=== PATIENT | male | born 1950 | race Caucasian/White ===

== ENCOUNTER 2016-05-01 14:43 | Inpatient (IN) | payer MEDICARE, OTHER ==
[~2016-05-01] VITALS: Ht 182.9 cm; Wt 84.0 kg
[~2016-05-01 14:43] MED LIST: ASPI81 PO; ATOR80TA41 PO; CARV3.125 PO; CLOP75 PO; OMEP20TA39 PO
[2016-05-01 14:45] VITALS: BP 151/78; PULSE 67; RESP 12; TEMP 97.6; O2SAT 94
--- NOTE | 2016-05-01 14:58 | PD ---
HPI Chief Complaint: Chest Pain Time Seen by Provider: 14:58 Travel History International Travel<30 days: No Contact w/Intl Traveler<30days: No Traveled to known affect area: No History of Present Illness HPI 65-year-old male came to the emergency room with history of chest pain that has been going on for past few days but worse since last night. Patient describes it dull pressure kind of sensation substernal and all across his chest. Patient had a stent put in 2 months ago and says that since then the pain has never really gone away. He has been lightheaded. No history of nausea vomiting. Patient was slightly bradycardic in the ER. He is on Plavix and aspirin since his stent and has been taking it every day like he supposed to. PFSH Past Medical History Narrative Medical List of his past medical history as reviewed from the nursing note. Hx Anticoagulant Therapy: Yes (PLAVIX) Arthritis: Yes (BILATERAL KNEE) Anxiety: Yes Depression: Yes Cancer: No Cardiovascular Problems: Yes (STENT) High Cholesterol: Yes Diminished Hearing: Yes Endocrine: No Gastrointestinal Disorders: Yes Genitourinary: No Hiatal Hernia: Yes Hypertension: Yes Immune Disorder: No Musculoskeletal: Yes Neurologic: Yes ( [place]ANGE) Psychiatric: Yes Reproductive: No Respiratory: Yes (COPD) Immunizations Current: Yes Past Surgical History Abdominal Surgery: Yes Cardiac Surgery: No Coronary Stent: Yes (x1) Ear Surgery: No Endocrine Surgery: No Eye Surgery: Yes Genitourinary Surgery: No Gynecologic Surgery: No Oral Surgery: No Thoracic Surgery: No Other Surgery: Yes Social History Alcohol Use: No Tobacco Use: No Substance Use: No Allergies-Medications (Allergen,Severity, Reaction): Coded Allergies: Amoxicillin (Verified Allergy, Severe, Anaphylaxis, 05/01/16) Codeine (Verified Allergy, Severe, Anaphylaxis, 05/01/16) HMG-CoA Reductase Inhibitors (Verified Allergy, Unknown, 05/01/16) MUSCLE PAINS, DIZZINESS Comments List of his allergies reviewed from the nursing note. Reported Meds & Prescriptions Reported Meds & Active Scripts Active Reported Protonix (Pantoprazole Sodium) 20 Mg Tab 20 Mg PO DAILY Plavix (Clopidogrel Bisulfate) 75 Mg Tab 75 Mg PO DAILY Aspirin Low Dose (Aspirin) 81 Mg Chew 81 Mg CHEW DAILY Narrative Medication List of his home medications reviewed from the nursing note. Review of Systems Except as stated in HPI: all other systems reviewed are Neg Physical Exam Narrative GENERAL: Awake, alert, moderate distress SKIN: Warm and dry. HEAD: Atraumatic. Normocephalic. EYES: Pupils equal and round. No scleral icterus. No injection or drainage. ENT: No nasal bleeding or discharge. Mucous membranes pink and moist. NECK: Trachea midline. No JVD. CARDIOVASCULAR: Regular rate and rhythm. No murmur appreciated. RESPIRATORY: No accessory muscle use. Clear to auscultation. Breath sounds equal bilaterally. GASTROINTESTINAL: Abdomen soft, non-tender, nondistended. Hepatic and splenic margins not palpable. MUSCULOSKELETAL: No obvious deformities. No clubbing. No cyanosis. No edema. NEUROLOGICAL: Awake and alert. No obvious cranial nerve deficits. Motor grossly within normal limits. Normal speech. PSYCHIATRIC: Appropriate mood and affect; insight and judgment normal. Data Data Last Documented VS Vital Signs Date Time Temp Pulse Resp B/P Pulse Ox O2 Delivery O2 Flow Rate FiO2 05/01/16 16:00 58 19 120/80 96 Room Air 05/01/16 14:45 97.6 Orders Electrocardiogram (05/01/16 15:06) Basic Metabolic Panel (Bmp) (05/01/16 15:06) Ckmb (Isoenzyme) Profile (05/01/16 15:06) Complete Blood Count With Diff (05/01/16 15:06) Magnesium (Mg) (05/01/16 15:06) Prothrombin Time / Inr (Pt) (05/01/16 15:06) Act Partial Throm Time (Ptt) (05/01/16 15:06) Troponin I (05/01/16 15:06) Chest, Single Ap (05/01/16 15:06) Ecg Monitoring (05/01/16 15:06) Bilateral Bp Monitoring (05/01/16 15:06) Iv Access Insert/Monitor (05/01/16 15:06) Oximetry (05/01/16 15:06) Oxygen Administration (05/01/16 15:06) Sodium Chloride 0.9% Flush (Ns Flush) (05/01/16 15:15) Aspirin Chew (Aspirin Chew) (05/01/16 15:15) D-Dimer (05/01/16 15:11) CKMB (05/01/16 15:10) CKMB% (05/01/16 15:10) Heparin Infusion IRASEMA.Q1H (05/01/16 17:11) Heparin Inj (Heparin Inj) (05/01/16 17:15) Heparin-D5w Inj (Heparin-D5w Inj) (05/01/16 17:15) Act Partial Throm Time (Ptt) (05/01/16 17:11) Cbc No Diff, Includes Plts (05/01/16 17:11) Admit Order (Ed Use Only) (05/01/16 17:36) Labs Laboratory Tests Test 05/01/16 15:10 White Blood Count 8.3 TH/MM3 Red Blood Count 4.71 MIL/MM3 Hemoglobin 14.2 GM/DL Hematocrit 42.7 % Mean Corpuscular Volume 90.7 FL Mean Corpuscular Hemoglobin 30.3 PG Mean Corpuscular Hemoglobin 33.3 % Concent Red Cell Distribution Width 13.6 % Platelet Count 221 TH/MM3 Mean Platelet Volume 8.7 FL Neutrophils (%) (Auto) 62.9 % Lymphocytes (%) (Auto) 24.1 % Monocytes (%) (Auto) 7.1 % Eosinophils (%) (Auto) 5.0 % Basophils (%) (Auto) 0.9 % Neutrophils # (Auto) 5.3 TH/MM3 Lymphocytes # (Auto) 2.0 TH/MM3 Monocytes # (Auto) 0.6 TH/MM3 Eosinophils # (Auto) 0.4 TH/MM3 Basophils # (Auto) 0.1 TH/MM3 CBC Comment DIFF FINAL Differential Comment Prothrombin Time 10.5 SEC Prothromb Time International 1.0 RATIO Ratio Activated Partial 25.2 SEC Thromboplast Time D-Dimer Quantitative (PE/DVT) 0.26 MG/L FEU Sodium Level 138 MEQ/L Potassium Level 3.9 MEQ/L Chloride Level 104 MEQ/L Carbon Dioxide Level 28.7 MEQ/L Anion Gap 5 MEQ/L Blood Urea Nitrogen 16 MG/DL Creatinine 1.05 MG/DL Estimat Glomerular Filtration 70 ML/MIN Rate Random Glucose 101 MG/DL Calcium Level 9.2 MG/DL Magnesium Level 2.3 MG/DL Total Creatine Kinase 148 U/L Creatine Kinase MB 2.1 NG/ML Troponin I 0.13 NG/ML MDM Medical Decision Making Medical Screen Exam Complete: Yes Emergency Medical Condition: Yes Medical Record Reviewed: Yes Interpretation(s) Twelve-lead EKG was reviewed by me. Normal sinus rhythm, left axis deviation, bradycardia, nonspecific ST-T wave changes. Heart rate of 57 bpm. Differential Diagnosis ACS, non-STEMI, nonspecific chest pain Narrative Course 5:30 PM blood test results of back and patient has elevated troponin. I have ordered IV heparin bolus and drip for this patient. He will be admitted to CICU. Critical Care Narrative Aggregate critical care time was 30 minutes. Time to perform other separately billable procedures was not included in the critical care time. My time did not include minutes spent treating any other patients simultaneously or on activities that did not directly contribute to the patient's treatment. The services I provided to this patient were to treat and/or prevent clinically significant deterioration that could result in: Non-STEMI, heparin bolus and drip I provided critical care services requiring my management, as noted below: Chart data review, documentation time, medication orders and management, vital sign assessments/reviewing monitor data, ordering and reviewing lab tests, ordering and interpreting/reviewing x-rays and diagnostic studies, care of the patient and discussion of the patient with the admitting physicians. Procedures EKG Prior to Arrival: Yes Diagnosis Primary Impression: Non-STEMI (non-ST elevated myocardial infarction) Additional Impression: Chest pain Qualified Code: R07.9 - Chest pain, unspecified type Admitting Information Admitting Physician Requests: Admit Scripts Isosorbide Mononitrate ER 30 Mg Taber30 Mg PO DAILY #30 TAB Prov:Argelia Coon MD 05/02/16 Nitroglycerin SL (Nitrostat SL)0.4 Mg Subl0.4 Mg SL Q5M PRN (CHEST PAIN) #30 CAP Prov:Argelia Coon MD 05/02/16 Arianne Alan MD May 01, 2016 14:58
[2016-05-01] MEDS ORDERED: ASPI81CH37 CHEW (14:59)
[2016-05-01] MEDS ORDERED: PLAV75TA29 PO (14:59)
[2016-05-01] MEDS ORDERED: PANT20 PO (14:59)
[2016-05-01] MEDS ORDERED: SODIUM CHLORIDE 0.9% FLUSH 5 ML FLUSH IVF PRN (15:15)
[2016-05-01] MEDS ORDERED: ASPIRIN 81 MG CHEW TAB CHEW ONE (15:15)
[2016-05-01 15:21] VITALS: BP_SYST 129; BP_SYST 135; BP_DIAS 90; BP_DIAS 92; O2SAT 99
[2016-05-01 15:48] LABS: AUTOMATED NEUTROPHIL # 5.3 TH/MM3 (1.8-7.7); BASOPHIL # 0.1 TH/MM3 (0-0.2); BASOPHIL % 0.9 % (0.0-2.0); EOSINOPHIL # 0.4 TH/MM3 (0-0.4); HEMATOCRIT 42.7 % (39.0-51.0); HEMO FLAGS DIFF FINAL; LYMPH % 24.1 % (9.0-44.0); MEAN CELL VOLUME 90.7 FL (80.0-100.0); MEAN CORPUSCULAR HEMOGLOBIN 30.3 PG (27.0-34.0); MEAN CORPUSCULAR HGB CONC 33.3 % (32.0-36.0); MONO % 7.1 % (0.0-8.0); NEUT % 62.9 % (16.0-70.0); PLATELET COUNT 221 TH/MM3 (150-450); RED BLOOD COUNT 4.71 MIL/MM3 (4.50-5.90); RED CELL DISTRIBUTION WIDTH 13.6 % (11.6-17.2); WHITE BLOOD COUNT 8.3 TH/MM3 (4.0-11.0)
--- NOTE | 2016-05-01 15:54 | RADRPT ---
EXAM DATE/TIME: 05/01/2016 15:07 [facility] COMPARISON: CHEST SINGLE AP, February 05, 2016, 20:26. INDICATIONS : Mid Sternal Chest pains x 1 day. MEDICAL HISTORY : Cardiovascular disease. TIA SURGICAL HISTORY : Stent ENCOUNTER: Initial ACUITY: 1 day PAIN SCORE: 3/10 LOCATION: Bilateral chest FINDINGS: Portable AP view of the chest demonstrates a normal-sized cardiac silhouette. No effusion, consolidat ion, or pneumothorax is identified. The bones and soft tissues demonstrate no acute finding. CONCLUSION: No acute cardiopulmonary abnormality is identified. Mike Cortez MD on May 01, 2016 at 15:51 Board Certified Radiologist. This report was verified electronically.
[2016-05-01 15:58] LABS: APTT (PATIENT) 25.2 SEC (24.3-30.1); PROTHROMBIN TIME - PATIENT 10.5 SEC (9.8-11.6)
[2016-05-01 16:00] VITALS: BP 120/80; PULSE 58; RESP 19; O2SAT 96
[2016-05-01 16:20] LABS: ANION GAP 5 MEQ/L (5-15); BICARBONATE 28.7 MEQ/L (21.0-32.0); BLOOD UREA NITROGEN 16 MG/DL (7-18); CHLORIDE 104 MEQ/L (98-107); GLOMERULAR FILTRATION RATE 70 ML/MIN (>89); MAGNESIUM 2.3 MG/DL (1.5-2.5); POTASSIUM 3.9 MEQ/L (3.5-5.1); SODIUM (NA) 138 MEQ/L (136-145)
[2016-05-01 16:24] LABS: CREATINE KINASE 148 U/L (39-308)
[2016-05-01 16:37] LABS: CKMB 2.1 NG/ML (0.5-3.6)
[2016-05-01] MEDS ORDERED: HEPARIN SODIUM - IV 10,000 UNITS/10 ML VIAL IV ONE (17:15)
[2016-05-01] MEDS ORDERED: HEPARIN-D5W INJ 250 ML IV SCH (17:15)
[2016-05-01] MEDS ORDERED: SODIUM CHLORIDE 0.9% FLUSH 5 ML FLUSH FLUSH PRN ×2 (18:00)
[2016-05-01] MEDS ORDERED: MORPHINE SULFATE 4 MG/ML INJ IV PRN (18:00)
[2016-05-01 18:30] LABS: HEMATOCRIT 39.7 % (39.0-51.0); MEAN CELL VOLUME 90.6 FL (80.0-100.0); MEAN CORPUSCULAR HEMOGLOBIN 30.2 PG (27.0-34.0); MEAN CORPUSCULAR HGB CONC 33.4 % (32.0-36.0); PLATELET COUNT 206 TH/MM3 (150-450); RED BLOOD COUNT 4.38 MIL/MM3 (4.50-5.90); RED CELL DISTRIBUTION WIDTH 14.1 % (11.6-17.2); REVIEW FLAG FINAL; WHITE BLOOD COUNT 8.1 TH/MM3 (4.0-11.0)
--- NOTE | 2016-05-01 18:38 | HHI.HP ---
[facility] Service [facility] ([place], [place])ists Primary Care Physician [facility] Admission Diagnosis NSTEMI Diagnoses: Chief Complaint: chest pressure/pain Travel History International Travel<30 Days: No Contact w/Intl Traveler <30 Da: No Traveled to Known Affected Are: No History of Present Illness 65-year-old male with PMH of Anxiety, Depression, HTN, Hyperlipidemia, CAD and COPD who came into the ER with complaints of chest pain/pressure. Patient had a recent cath with stent placement 02/[address] Andino and says he still has pain since then. Had stent to mid LAD is on ASA, Plavix and Statin, patient has sinus bradycardia and is not on B-kevon. had also Neuro eval for TIA, work up negative as he al;so has dizziness since then. Patient has chest pressure nonradiating, intermittent at rest and with exercise as well, and occurs at night says he is afraid he is "going to at night". He has associated lightheadedness. No palpitations, no diaphoresis, nausea/ vomiting. No other associated symptoms. Review of Systems Constitutional: COMPLAINS OF: Dizziness, DENIES: Fever, Chills, Change in appetite Endocrine: DENIES: Heat/cold intolerance Eyes: DENIES: Blurred vision, Eye pain Ears, nose, mouth, throat: DENIES: Tinnitus, Hearing loss, Vertigo, Nasal discharge, Oral lesions, Throat pain, Hoarseness, Ear Pain, Running Nose, Epistaxis, Sinus Pain, Toothache, Odynophagia Cardiovascular: COMPLAINS OF: Chest pain Gastrointestinal: DENIES: Abdominal pain, Black stools, Bloody stools, Constipation, Diarrhea, Nausea, Vomiting, Difficulty Swallowing, Anorexia Genitourinary: DENIES: Hematuria, Dysuria, Nocturia Musculoskeletal: DENIES: Joint pain Integumentary: DENIES: Rash Neurologic: DENIES: Abnormal gait, Headache, Localized weakness, Paresthesias, Seizures, Speech Problems, Tremor, Poor Balance Psychiatric: DENIES: Anxiety, Depression Past Family Social History Past Medical History Anxiety, Depression, HTN, Hyperlipidemia, CAD and COPD Past Surgical History Cardiac cath with Cardiac Stent Reported Medications Reported Meds & Active Scripts Active Reported Protonix (Pantoprazole Sodium) 20 Mg Tab 20 Mg PO DAILY Plavix (Clopidogrel Bisulfate) 75 Mg Tab 75 Mg PO DAILY Aspirin Low Dose (Aspirin) 81 Mg Chew 81 Mg CHEW DAILY Allergies: Coded Allergies: Amoxicillin (Verified Allergy, Severe, Anaphylaxis, 05/01/16) Codeine (Verified Allergy, Severe, Anaphylaxis, 05/01/16) HMG-CoA Reductase Inhibitors (Verified Allergy, Unknown, 05/01/16) MUSCLE PAINS, DIZZINESS Family History No h/o DM or CAD Social History Negative for alcohol, tobacco or drugs. Physical Exam Vital Signs Vital Signs Date Time Temp Pulse Resp B/P Pulse Ox O2 Delivery O2 Flow Rate FiO2 05/01/16 16:00 58 19 120/80 96 Room Air 05/01/16 15:23 99 Room Air 05/01/16 15:21 99 Room Air 05/01/16 15:21 135/90 129/92 05/01/16 15:21 99 Room Air 05/01/16 14:45 97.6 67 12 151/78 94 Room Air Physical Exam GENERAL: This is a well-nourished, well-developed patient, in no apparent distress. SKIN: No rashes, ecchymoses or lesions. Cool and dry. HEAD: Atraumatic. Normocephalic. No temporal or scalp tenderness. EYES: Pupils equal round and reactive. Extraocular motions intact. No scleral icterus. No injection or drainage. ENT: Nose without bleeding, purulent drainage or septal hematoma. Throat without erythema, tonsillar hypertrophy or exudate. Uvula midline. Airway patent. NECK: Trachea midline. No JVD or lymphadenopathy. Supple, nontender, no meningeal signs. CARDIOVASCULAR: Regular rate and rhythm without murmurs, gallops, or rubs. RESPIRATORY: Clear to auscultation. Breath sounds equal bilaterally. No wheezes , rales, or rhonchi. GASTROINTESTINAL: Abdomen soft, non-tender, nondistended. No hepato-splenomegaly , or palpable masses. No guarding. MUSCULOSKELETAL: Extremities without clubbing, cyanosis, or edema. No joint tenderness, effusion, or edema noted. No calf tenderness. Negative Homans sign bilaterally. NEUROLOGICAL: Awake and alert. Cranial nerves II through XII intact. Motor and sensory grossly within normal limits. Five out of 5 muscle strength in all muscle groups. Normal speech. Laboratory Laboratory Tests Test 05/01/16 05/01/16 15:10 18:00 White Blood Count 8.3 8.1 Red Blood Count 4.71 4.38 Hemoglobin 14.2 13.3 Hematocrit 42.7 39.7 Mean Corpuscular Volume 90.7 90.6 Mean Corpuscular Hemoglobin 30.3 30.2 Mean Corpuscular Hemoglobin 33.3 33.4 Concent Red Cell Distribution Width 13.6 14.1 Platelet Count 221 206 Mean Platelet Volume 8.7 8.4 Neutrophils (%) (Auto) 62.9 Lymphocytes (%) (Auto) 24.1 Monocytes (%) (Auto) 7.1 Eosinophils (%) (Auto) 5.0 Basophils (%) (Auto) 0.9 Neutrophils # (Auto) 5.3 Lymphocytes # (Auto) 2.0 Monocytes # (Auto) 0.6 Eosinophils # (Auto) 0.4 Basophils # (Auto) 0.1 CBC Comment DIFF FINAL Differential Comment Prothrombin Time 10.5 Prothromb Time International 1.0 Ratio Activated Partial 25.2 Thromboplast Time D-Dimer Quantitative (PE/DVT) 0.26 Sodium Level 138 Potassium Level 3.9 Chloride Level 104 Carbon Dioxide Level 28.7 Anion Gap 5 Blood Urea Nitrogen 16 Creatinine 1.05 Estimat Glomerular Filtration 70 Rate Random Glucose 101 Calcium Level 9.2 Magnesium Level 2.3 Total Creatine Kinase 148 Creatine Kinase MB 2.1 Troponin I 0.13 Result Diagram: 05/01/16 1800 05/01/16 1510 Imaging Last Impressions Chest X-Ray 05/01/16 1506 Signed Impressions: Service Date/Time: Sunday, May 01, 2016 15:07 - CONCLUSION: No acute cardiopulmonary abnormality is identified. Mike Cortez MD Assessment and Plan Assessment and Plan Chest Pain: R/o ACS. Previous admission 02/04 NSTEMI s/p Stent to Mid LAD by Dr. Andino. Trop 0/13 , will trend trops. EKG w/ no acute changes. On telemetry. Currently chest pain free. NTG/Morphine as needed. Place on telemetry. CXR w/ no acute findings, images reviewed by me. Elevated Trop: S/p Cardiac Cath w/ Stent 02/03/16. Trop 0.13, will check serial cardiac enzymes for trend. On heparin drip, cont of ASA, Plavix and Statin. Consult his cardio Dr. Andino. No BB as patient with sinus bradycardia. CAD: As above, s/p Stent. Continue w/ ASA, Plavix, Statin. DVT Prophylaxis: Lovenox CM for d/c planning as needed. Code Status full code Discussed Condition With patient, nurse, ED physician Physician Certification 2 Midnight Certification Type: Admission for Inpatient Services Order for Inpatient Services The services are ordered in accordance with Medicare regulations or non- Medicare payer requirements, as applicable. In the case of services not specified as inpatient-only, they are appropriately provided as inpatient services in accordance with the 2-midnight benchmark. Estimated LOS (days): 3 days is the estimated time the patient will need to remain in the hospital, assuming treatment plan goals are met and no additional complications. Post-Hospital Plan: Home Argelia Coon MD May 01, 2016 18:38
[2016-05-01 18:44] LABS: APTT (PATIENT) 75.6 SEC (24.3-30.1)
[2016-05-01] MEDS ORDERED: ACETAMINOPHEN 325 MG TAB PO PRN (19:00)
[2016-05-01] MEDS ORDERED: MAGNESIUM HYDROXIDE SUSP 30 ML CUP PO PRN (19:00)
[2016-05-01] MEDS ORDERED: BISACODYL 10 MG SUPP PR PRN (19:00)
[2016-05-01] MEDS ORDERED: SENNOSIDES 8.6 MG TAB PO PRN (19:00)
[2016-05-01] MEDS ORDERED: ONDANSETRON HCL 4 MG/2 ML VIAL IVP PRN (19:00)
[2016-05-01] MEDS ORDERED: PROCHLORPERAZINE 25 MG SUPP PR PRN (19:00)
[2016-05-01 19:30] VITALS: BP 132/74; PULSE 56; RESP 16; TEMP 98.5; O2SAT 99
[2016-05-01 20:12] LABS: APTT (PATIENT) 62.5 SEC (24.3-30.1)
[2016-05-01] MEDS ORDERED: LORazepam 0.5 MG TAB PO PRN (20:15)
[2016-05-01] MEDS ORDERED: NITROGLYCERIN 0.4 MG SL 25 TABS/BTL SL PRN (20:30)
[2016-05-01] MEDS ORDERED: SODIUM CHLORIDE 0.9% FLUSH 5 ML FLUSH FLUSH SCH (21:00)
[2016-05-01] MEDS: SODIUM CHLORIDE 0.9% FLUSH 5 ML FLUSH FLUSH SCH (21:17)
[2016-05-01 23:30] VITALS: BP 133/81; PULSE 54; RESP 16; O2SAT 97
[2016-05-02 01:26] LABS: APTT (PATIENT) 38.8 SEC (24.3-30.1)
[2016-05-02 04:30] VITALS: BP 142/79; PULSE 70; RESP 16; O2SAT 96
[2016-05-02 05:30] VITALS: O2SAT 95
[2016-05-02 05:46] LABS: ALT (GPT) 34 U/L (12-78); ANION GAP 8 MEQ/L (5-15); AST (GOT) 26 U/L (15-37); BICARBONATE 27.4 MEQ/L (21.0-32.0); BLOOD UREA NITROGEN 15 MG/DL (7-18); CHLORIDE 106 MEQ/L (98-107); GLOMERULAR FILTRATION RATE 68 ML/MIN (>89); POTASSIUM 3.7 MEQ/L (3.5-5.1); SODIUM (NA) 141 MEQ/L (136-145)
[2016-05-02 05:49] LABS: ALKALINE PHOSPHATASE 65 U/L (45-117); TOTAL BILIRUBIN ADULT 0.7 MG/DL (0.2-1.0)
[2016-05-02 06:30] VITALS: BP 118/57; PULSE 53; RESP 16; TEMP 98.2; O2SAT 98
[2016-05-02 07:04] LABS: APTT (PATIENT) 42.5 SEC (24.3-30.1)
[2016-05-02 07:52] VITALS: BP 108/58; PULSE 55; RESP 16; O2SAT 97
--- NOTE | 2016-05-02 08:19 | HHI.PR ---
Subjective Remarks Patient says he still feels dizzy and has chest pressure. No diaphoresis, nausea. Denies cough, n/v/d/c. Objective Vitals Vital Signs Date Time Temp Pulse Resp B/P Pulse Ox O2 Delivery O2 Flow Rate FiO2 05/02/16 07:52 55 16 108/58 97 Room Air 05/02/16 06:30 98.2 53 16 118/57 98 Room Air 05/02/16 05:30 95 21 05/02/16 04:30 70 16 142/79 96 Room Air 05/01/16 23:30 54 16 133/81 97 Room Air 05/01/16 19:30 98.5 56 16 132/74 99 Nasal Cannula 2 05/01/16 19:30 65 18 97 Nasal Cannula 2 05/01/16 16:00 58 19 120/80 96 Room Air 05/01/16 15:23 99 Room Air 05/01/16 15:21 99 Room Air 05/01/16 15:21 135/90 129/92 05/01/16 15:21 99 Room Air 05/01/16 14:45 97.6 67 12 151/78 94 Room Air Result Diagram: 05/01/16 1800 05/02/16 0444 Imaging Last Impressions Chest X-Ray 05/01/16 1506 Signed Impressions: Service Date/Time: Sunday, May 01, 2016 15:07 - CONCLUSION: No acute cardiopulmonary abnormality is identified. Mike Cortez MD Objective Remarks GENERAL: This is a well-nourished, well-developed patient, in no apparent distress. SKIN: No rashes, ecchymoses or lesions. Cool and dry. HEAD: Atraumatic. Normocephalic. No temporal or scalp tenderness. EYES: Pupils equal round and reactive. Extraocular motions intact. No scleral icterus. No injection or drainage. ENT: Nose without bleeding, purulent drainage or septal hematoma. Throat without erythema, tonsillar hypertrophy or exudate. Uvula midline. Airway patent. NECK: Trachea midline. No JVD or lymphadenopathy. Supple, nontender, no meningeal signs. CARDIOVASCULAR: Regular rate and rhythm without murmurs, gallops, or rubs. RESPIRATORY: Clear to auscultation. Breath sounds equal bilaterally. No wheezes , rales, or rhonchi. GASTROINTESTINAL: Abdomen soft, non-tender, nondistended. No hepato-splenomegaly , or palpable masses. No guarding. MUSCULOSKELETAL: Extremities without clubbing, cyanosis, or edema. No joint tenderness, effusion, or edema noted. No calf tenderness. Negative Homans sign bilaterally. NEUROLOGICAL: Awake and alert. Cranial nerves II through XII intact. Motor and sensory grossly within normal limits. Five out of 5 muscle strength in all muscle groups. Normal speech. A/P Assessment and Plan Chest Pain: R/o ACS. Previous admission 02/04 NSTEMI s/p Stent to Mid LAD by Dr. Andino. Trop 0/13 , will trend trops. EKG w/ no acute changes. On telemetry. Currently chest pain free. NTG/Morphine as needed. Place on telemetry. CXR w/ no acute findings, images reviewed by me. Elevated Trop: S/p Cardiac Cath w/ Stent 02/03/16. Trop 0.13->0.11->0.10. On heparin drip, on ASA, Plavix (hold for now as he is on heparin) and Statin. Consult his cardio Dr. Andino. No BB as patient with sinus bradycardia. Plan for cardiac cath today CAD: As above, s/p Stent. On ASA, Plavix, Statin. DVT Prophylaxis: Lovenox CM for d/c planning as needed. Code Status full code Discussed Condition With patient, nurse Argelia Coon MD May 02, 2016 08:19
[2016-05-02] MEDS ORDERED: ASPIRIN 81 MG CHEW TAB CHEW SCH (09:00)
[2016-05-02] MEDS ORDERED: PANTOPRAZOLE SOD 20 MG DELAYED RELEASE TAB PO SCH (09:00)
[2016-05-02] MEDS ORDERED: CLOPIDOGREL 75 MG TAB PO SCH (09:00)
[2016-05-02] MEDS: SODIUM CHLORIDE 0.9% FLUSH 5 ML FLUSH FLUSH SCH (09:41)
[2016-05-02 12:47] VITALS: BP 143/91; PULSE 57; RESP 16; O2SAT 99
[2016-05-02 14:15] VITALS: BP 125/58; PULSE 71; RESP 16; O2SAT 99
[2016-05-02] MEDS ORDERED: HEPARIN-NS/PF INJ 500 ML ONE (14:37)
[2016-05-02] MEDS ORDERED: MIDAZOLAM HCL 2 MG/2 ML VIAL ONE (14:37)
--- NOTE | 2016-05-02 14:56 | MB ---
cc: MARILEE BORREGO MD DATE OF CONSULTATION: 05/02/2016 HISTORY OF PRESENT ILLNESS Mr. Delarosa is a 65-year-old white male with a history of coronary artery disease and LAD stent placement on 02/04/2016. A Resolute 2.5 x 30 mm stent was placed at the time. The patient has had dizziness, substernal chest pressure, lightheadedness. His chest pressure increased over the last several days. He was admitted to the hospital. The patient's troponin was elevated consistent with [id number] myocardial infarction. PAST MEDICAL HISTORY 1. Coronary artery disease, recent LAD stenting, for [id number] myocardial infarction. 2. Bradycardia, exacerbated by beta kevon. 3. Dyslipidemia. 4. Osteoarthritis. 5. Right eye retinal detachment. PAST SURGICAL HISTORY 1. History of tonsillectomy. 2. Facial surgery. 3. Hiatal hernia. 4. Cholecystectomy. 5. Knee arthroscopy. MEDICATIONS 1. Protonix. 2. Plavix. 3. Aspirin. ALLERGIES 1. AMOXICILLIN. 2. CODEINE. 3. STATINS. SOCIAL HISTORY The patient does not smoke. He rarely drinks alcohol. He is a . FAMILY HISTORY Negative for heart disease. REVIEW OF SYSTEMS Otherwise negative. PHYSICAL EXAMINATION VITAL SIGNS: Blood pressure 143/91, pulse 57 and regular. HEENT: Negative. NECK: 2+ carotid upstrokes. No bruits. LUNGS: Clear. HEART: Regular. No murmur, gallop or rub. ABDOMEN: Soft. No bruit. EXTREMITIES: Without edema. 2+ distal pulses. NEUROLOGIC: Grossly nonfocal. EKG EKG was reviewed and showed sinus bradycardia at 57 beats per minute with normal axis and intervals, no acute changes. LABORATORY Hemoglobin 13.3. Potassium 3.7, creatinine 1.1. Troponin 0.13, 0.11, and 0.10. DIAGNOSIS 1. [id number] myocardial infarction. 2. Coronary artery disease, h/o LAD stenting. 3. Hypertension. 4. Dyslipidemia. 5. COPD. DISPOSITION Mr. Delarosa will undergo cardiac catheterization and coronary intervention if necessary. He understands the risks and benefits and wishes to proceed. We will continue therapy with aspirin. We may consider switching Plavix to Brilinta. I will follow him for cardiology during his hospitalization. I will also see him back for follow-up in our office after discharge. MD QUOC Bond /2:10 PM /2:39 PM MTDRomy
[2016-05-02] MEDS ORDERED: MIDAZOLAM HCL 5 MG/5 ML VIAL ONE (15:16)
[2016-05-02] MEDS ORDERED: IOHEXOL 350 MG/ML 100 ML BTL (for Cath Lab) OTHER ONE (15:19)
[2016-05-02] MEDS ORDERED: SODIUM CHLOR 0.9% 1000 ML INJ 500 ML IV SCH (16:15)
[2016-05-02] MEDS ORDERED: ISOS30TA3 PO ×2 (16:31→18:40)
[2016-05-02] MEDS ORDERED: NITR0.4S SL (16:31)
--- NOTE | 2016-05-02 16:31 | HHI.DCPOC ---
Discharge Care Plan Goals to Promote Your Health * To prevent worsening of your condition and complications * To maintain your health at the optimal level Directions to Meet Your Goals Take your medications as prescribed Follow your dietary instruction Follow activity as directed Keep your appointments as scheduled Take your immunizations and boosters as scheduled If your symptoms worsen call your PCP, if no PCP go to Urgent Care Center or Emergency Room Smoking is Dangerous to Your Health. Avoid second hand smoke Call the 24-hour hour crisis hotline for domestic abuse at Argelia Coon MD May 02, 2016 16:31
[2016-05-02] MEDS ORDERED: ISOSORBIDE MONONITRATE 30 MG TAB PO ONE (16:45)
--- NOTE | 2016-05-02 21:01 | MA ---
cc: MARILEE BORREGO DATE 05/02/2016 INDICATION Non-ST elevation myocardial infarction, class IV angina, coronary artery disease, history of LAD stenting. PROCEDURE PERFORMED Retrograde left heart catheterization with left ventriculography and selective coronary angiography. ACCESS SITE Right femoral artery. EQUIPMENT USED 5 Divehi pigtail catheter, 5 Divehi JL4 and AR modified coronary artery catheters. MEDICATIONS IV Fentanyl. CONTRAST Omnipaque 80 cc. BLOOD LOSS Less than 10 cc. COMPLICATIONS None. METHOD OF HEMOSTASIS Manual compression. RESULTS HEMODYNAMICS Heart rate 57 beats per minute. Left ventricular end-diastolic pressure 6 mmHg Left ventricle 110/6. Aorta 110/64/84. LEFT VENTRICULOGRAPHY Ejection fraction 55%. Wall motion normal. No mitral regurgitation. CORONARY ANGIOGRAPHY Left main coronary artery patent. Left anterior descending artery is patent. There is patent stent in the mid LAD. First diagonal artery has 60% ostial stenosis. Left circumflex artery is patent. OM-1 is patent. Right coronary artery is a dominant vessel which is patent. PDA is patent, PLV patent. DIAGNOSES 1. Moderate non-obstructing coronary artery disease with 60% ostial stenosis of the first diagonal artery and patent stent in the mid LAD. 2. Overall preserved left ventricular systolic function. DISPOSITION Mr. Delarosa will be monitored on telemetry after the procedure. We will continue antiplatelet therapy with aspirin. We will switch his Plavix to Brilinta. We will initiate therapy with long-acting nitroglycerine. We will continue aggressive modification of his cardiac risk factors. He has not tolerated statins. I will see him back for followup in our office after discharge. MD BRIAN Bond/KK /3:49 PM /8:39 PM SARMAD
[2016-05-02 22:08] LABS: HDL CHOLESTEROL 77.5 MG/DL (40.0-60.0)
--- NOTE | 2016-05-02 22:30 | EKG ---
Date Performed: 05/02/2016 Time Performed: 00:58:18 PTAGE: 65 years EKG: SINUS BRADYCARDIA PROLONGED QT INTERVAL ABNORMAL ECG PREVIOUS TRACING : 05/01/2016 15.03 Compared to prior tracing no significant change DOCTOR: Steven Loyd Interpretating Date/Time 05/02/2016 22:27:35
--- NOTE | 2016-05-02 22:44 | EKG ---
Date Performed: 05/01/2016 Time Performed: 15:03:58 PTAGE: 65 years EKG: SINUS BRADYCARDIA BORDERLINE ECG PREVIOUS TRACING : 02/05/2016 20.00 Compared to the previous tracing, sinus bradycardia is new DOCTOR: Steven Loyd Interpretating Date/Time 05/02/2016 22:40:29
--- NOTE | 2016-05-14 11:50 | PQ ---
Physician Query Response Document PATIENT: BETTY NEGRETE : 1950 ADMIT DATE: 05/01/2016 5:38 PM DISCH DATE: 05/02/2016 4:30 PM RESPONDING PROVIDER #: [email or web address] QUERY TEXT: Clarification of Clinical Diagnostic Findings Please clarify documentation or clinical relevance for the clinical / diagnostic findings or whether those are insignificant or unable to be further specified. CHEST PAIN after studies was: 1)UNKNOWN ETIOLOGY 2)ANGINA unspecified 3)ATYPICAL 4)Acute Coronary Syndrome/ACS 5) New NSTEMI 6)[id number] specify) If you have any additional questions/comments and/or concerns please call [email or web address] The patient's Clinical Indicators include: Dr. COON, patient was admitted with chest pain. please review the question below and answer to the best of your ability. THANK YOU Query created by: Armando Farrell on 05/09/2016 9:57 AM RESPONSE TEXT: Patient with NSTEMI elevated trops , CAD and angina s/p cath Electronically signed by: Argelia Coon MD 05/14/2016 11:46 AM
== END 2016-05-02 16:30 | disposition home or self-care (01) | DRG 282 ==
LOC: NEPC 14:43 → NEDA 17:38 → NEDH 21:38 → HPAC 05-02 14:24
PROVIDERS: ADMIT Hospitalist; ATTEND Hospitalist
PROC: 3E0F7GC Introduction of Other Therapeutic Substance into Respiratory Tract, Via Natural or Artificial Opening (ICD-10-PCS; principal; 2016-05-01)
PROC: 4A023N7 Measurement of Cardiac Sampling and Pressure, Left Heart, Percutaneous Approach (ICD-10-PCS; 2016-05-02)
PROC: B2111ZZ Fluoroscopy of Multiple Coronary Arteries using Low Osmolar Contrast (ICD-10-PCS; 2016-05-02)
PROC: B2151ZZ Fluoroscopy of Left Heart using Low Osmolar Contrast (ICD-10-PCS; 2016-05-02)
DX: I21.4 Non-ST elevation (NSTEMI) myocardial infarction (principal); I25.119 Atherosclerotic heart disease of native coronary artery with unspecified angina pectoris; J44.9 Chronic obstructive pulmonary disease, unspecified; I10 Essential (primary) hypertension; R00.1 Bradycardia, unspecified; E78.00 Pure hypercholesterolemia, unspecified; H91.90 Unspecified hearing loss, unspecified ear; K44.9 Diaphragmatic hernia without obstruction or gangrene; M19.90 Unspecified osteoarthritis, unspecified site; F41.9 Anxiety disorder, unspecified; F32.9 Major depressive disorder, single episode, unspecified; E78.5 Hyperlipidemia, unspecified; R42 Dizziness and giddiness; I25.2 Old myocardial infarction; Z95.5 Presence of coronary angioplasty implant and graft; Z79.02 Long term (current) use of antithrombotics/antiplatelets; Z79.82 Long term (current) use of aspirin
CPT/HCPCS: 71010; 80048; 80053; 80061; 82550; 82552; 83735; 84484; 85002; 85025; 85027; 85379; 85610; 85730; 93005; 93458; C1769; C1893; J1644; J2250; J3010; Q9967